=== PATIENT | male | born 1960 | race Caucasian/White ===

== ENCOUNTER 2018-05-27 21:35 | Inpatient (IN) | payer BC, OTHER ==
[~2018-05-27] VITALS: Ht 185.4 cm; Wt 83.9 kg
[2018-05-28 01:53] VITALS: BP 138/88
[2018-05-28] MEDS ORDERED: 5 DAY TAPER VALIUM-SERENITY PROTOCOL PO PRN (02:00)
[2018-05-28] MEDS ORDERED: LOPERAMIDE HCL 2 MG CAPSULE PO PRN ×2 (02:00)
[2018-05-28] MEDS ORDERED: MAGNESIUM HYDROXIDE 30 ML LIQUID UDC PO PRN (02:00)
[2018-05-28] MEDS ORDERED: MAG HYDROX/AL HYDROX/SIMETH 30 ML LIQUID UDC PO PRN (02:00)
[2018-05-28] MEDS ORDERED: ONDANSETRON 4 MG/2 ML VIAL IM PRN (02:00)
[2018-05-28] MEDS ORDERED: CLONIDINE HCL 0.1 MG TABLET PO PRN (02:00)
[2018-05-28] MEDS ORDERED: ACETAMINOPHEN 325 MG TABLET PO PRN (02:00)
[2018-05-28] MEDS ORDERED: MIRALAX 17 GM POWD.PACK PO PRN (02:00)
[2018-05-28] MEDS ORDERED: DIAZEPAM 10 MG TABLET PO PRN ×2 (02:00)
[2018-05-28] MEDS ORDERED: IBUPROFEN 400 MG TABLET PO PRN (02:00)
[2018-05-28] MEDS ORDERED: DIAZEPAM 5 MG TABLET PO PRN (02:00)
[2018-05-28] MEDS ORDERED: ONDANSETRON ODT 4 MG TAB.RAPDIS SL PRN (02:00)
[2018-05-28] MEDS ORDERED: diphenhydrAMINE 50 MG CAPSULE PO PRN (02:00)
[2018-05-28] MEDS ORDERED: THIAMINE HCL 200 MG/2 ML VIAL IM ONE (02:00)
[2018-05-28] MEDS ORDERED: DICYCLOMINE HCL 20 MG TABLET PO PRN (02:00)
[2018-05-28] MEDS ORDERED: LORAZEPAM 2 MG/1 ML VIAL IM PRN (02:00)
[2018-05-28 02:14] LABS: BASOPHILS % (AUTO) 0.6 % (0.0-2.0); EOSINOPHILS % (AUTO) 0.2 % (0.0-7.0); HEMATOCRIT 41.5 % (36.7-47.1); HEMOGLOBIN 14.4 g/dL (12.5-16.3); LYMPHOCYTES # (AUTO) 1.8 K/uL (20.0-40.0); LYMPHOCYTES % (AUTO) 35.7 % (20.5-51.5); MEAN CORPUSCULAR HEMOGLOBIN 31.4 uug (23.8-33.4); MEAN CORPUSCULAR HGB CONC 35 g/dL (32.5-36.3); MEAN CORPUSCULAR VOLUME 90.7 fL (73.0-96.2); MONOCYTES # (AUTO) 0.3 K/uL (2.0-10.0); MONOCYTES % (AUTO) 5.5 % (0.0-11.0); NEUTROPHILS # (AUTO) 2.9 K/uL (1.8-8.9); PLATELET COUNT (AUTO) 297 K/uL (152-348); RED BLOOD CELL COUNT(AUTO) 4.58 MIL/uL (4.06-5.63)
[2018-05-28 02:35] LABS: BILIRUBIN,TOTAL 0.2 mg/dL (0.2-1.0); CREATININE 1.1 mg/dL (0.6-1.3); MAGNESIUM 2.1 mg/dL (1.8-2.4); POTASSIUM 3.6 mmol/L (3.5-5.1); TOTAL PROTEIN, SERUM 8.3 g/dL (6.4-8.2)
[2018-05-28 02:57] LABS: *AMPHETAMINE, URINE NEGATIVE (NEGATIVE); *BARBITURATE, URINE NEGATIVE (NEGATIVE); *CANNABINOID, URINE NEGATIVE (NEGATIVE); *COCCAINE, URINE NEGATIVE (NEGATIVE); *OPIATE, URINE NEGATIVE (NEGATIVE); *PHENCYCLIDINE SCREEN,URINE NEGATIVE (NEGATIVE)
[2018-05-28 03:18] LABS: THYROID STIMULATING HORMONE 1.473 mIU/mL (0.358-3.740)
[2018-05-28] MEDS ORDERED: SPIR25TA6 PO (03:25)
[2018-05-28] MEDS ORDERED: IBUP-1955 PO (03:25)
[2018-05-28] MEDS ORDERED: [UNRECOGNIZED DRUG - CODE] TP (03:25)
[2018-05-28] MEDS ORDERED: LOSA25TA13 PO (03:25)
[2018-05-28] MEDS ORDERED: CARV6.252 PO (03:25)
[2018-05-28] MEDS ORDERED: AMIO200T4 PO (03:25)
[2018-05-28 04:00] VITALS: BP 140/91
[2018-05-28 08:00] VITALS: BP 117/75
[2018-05-28] MEDS: MULTIVITAMINS,THERAPEUTIC TABLET PO SCH (09:15)
[2018-05-28] MEDS: FOLIC ACID 1 MG TABLET PO SCH (09:15)
[2018-05-28] MEDS: THIAMINE HCL 100 MG TABLET PO SCH (09:15)
[2018-05-28] MEDS: DIAZEPAM 10 MG TABLET PO SCH ×4 (09:15→20:24)
[2018-05-28 12:00] VITALS: BP 141/91
[2018-05-28] MEDS: CARVEDILOL 6.25 MG TABLET PO SCH ×2 (13:04→18:26)
[2018-05-28] MEDS: LOSARTAN POTASSIUM 25 MG TABLET PO SCH (13:14)
[2018-05-28] MEDS: SPIRONOLACTONE 25 MG TABLET PO SCH (13:14)
[2018-05-28 16:00] VITALS: BP 137/96
[2018-05-28 20:00] VITALS: BP 144/90
[2018-05-29] VITALS: BP 140/96
[2018-05-29 04:00] VITALS: BP 138/89
[2018-05-29 08:04] LABS: AMYLASE 106 U/L (25-115); LIPASE 291 U/L (73-393)
[2018-05-29 08:06] LABS: HEPATITIS B SURFACE AG Negative (Negative)
[2018-05-29] MEDS: LOSARTAN POTASSIUM 25 MG TABLET PO SCH (08:22)
[2018-05-29] MEDS: THIAMINE HCL 100 MG TABLET PO SCH (08:22)
[2018-05-29] MEDS: DIAZEPAM 10 MG TABLET PO SCH ×3 (08:22→21:33)
[2018-05-29] MEDS: AMIODARONE HCL 200 MG TABLET PO SCH (08:22)
[2018-05-29] MEDS: SPIRONOLACTONE 25 MG TABLET PO SCH (08:22)
[2018-05-29] MEDS: MULTIVITAMINS,THERAPEUTIC TABLET PO SCH (08:22)
[2018-05-29] MEDS: FOLIC ACID 1 MG TABLET PO SCH (08:22)
[2018-05-29] MEDS: CARVEDILOL 6.25 MG TABLET PO SCH ×2 (08:22→18:11)
[2018-05-29 08:30] VITALS: BP 137/91
[2018-05-29] MEDS ORDERED: TUBERCULIN,PURIF.PROT.DERIV. 5 TU/0.1 ML TEST ID ONE (09:00)
[2018-05-29 12:00] VITALS: BP 142/95
[2018-05-29 16:30] VITALS: BP 124/84
[2018-05-29 20:00] VITALS: BP 129/84
[2018-05-30] VITALS: BP 143/88
[2018-05-30 04:00] VITALS: BP 132/84
[2018-05-30 08:00] VITALS: BP 123/84
[2018-05-30] MEDS: MULTIVITAMINS,THERAPEUTIC TABLET PO SCH (08:16)
[2018-05-30] MEDS: CARVEDILOL 6.25 MG TABLET PO SCH ×2 (08:16→18:00)
[2018-05-30] MEDS: DIAZEPAM 5 MG TABLET PO SCH ×4 (08:16→22:25)
[2018-05-30] MEDS: FOLIC ACID 1 MG TABLET PO SCH (08:16)
[2018-05-30] MEDS: THIAMINE HCL 100 MG TABLET PO SCH (08:16)
[2018-05-30] MEDS: SPIRONOLACTONE 25 MG TABLET PO SCH (08:17)
[2018-05-30] MEDS: AMIODARONE HCL 200 MG TABLET PO SCH (08:17)
[2018-05-30] MEDS: LOSARTAN POTASSIUM 25 MG TABLET PO SCH (08:17)
[2018-05-30 12:00] VITALS: BP 134/91
[2018-05-30 16:00] VITALS: BP 119/76
[2018-05-30 20:00] VITALS: BP 141/81
[2018-05-31] VITALS: BP 135/79
[2018-05-31 04:00] VITALS: BP 132/90
[2018-05-31 08:00] VITALS: BP 120/72
[2018-05-31] MEDS: FOLIC ACID 1 MG TABLET PO SCH (08:21)
[2018-05-31] MEDS: AMIODARONE HCL 200 MG TABLET PO SCH (08:22)
[2018-05-31] MEDS: SPIRONOLACTONE 25 MG TABLET PO SCH (08:22)
[2018-05-31] MEDS: LOSARTAN POTASSIUM 25 MG TABLET PO SCH (08:22)
[2018-05-31] MEDS: CARVEDILOL 6.25 MG TABLET PO SCH ×2 (08:22→18:12)
[2018-05-31] MEDS: THIAMINE HCL 100 MG TABLET PO SCH (08:22)
[2018-05-31] MEDS: MULTIVITAMINS,THERAPEUTIC TABLET PO SCH (08:22)
[2018-05-31] MEDS: DIAZEPAM 5 MG TABLET PO SCH ×2 (08:22→14:51)
[2018-05-31 12:00] VITALS: BP 136/91
[2018-05-31 16:00] VITALS: BP 139/96
[2018-05-31 20:25] VITALS: BP 137/82
[2018-06-01 01:00] VITALS: BP 130/83
[2018-06-01 04:03] VITALS: BP 129/84
[2018-06-01] MEDS: LOSARTAN POTASSIUM 25 MG TABLET PO SCH (08:19)
[2018-06-01] MEDS: AMIODARONE HCL 200 MG TABLET PO SCH (08:19)
[2018-06-01] MEDS: SPIRONOLACTONE 25 MG TABLET PO SCH (08:19)
[2018-06-01] MEDS: FOLIC ACID 1 MG TABLET PO SCH (08:20)
[2018-06-01] MEDS: MULTIVITAMINS,THERAPEUTIC TABLET PO SCH (08:20)
[2018-06-01] MEDS: THIAMINE HCL 100 MG TABLET PO SCH (08:20)
[2018-06-01] MEDS: CARVEDILOL 6.25 MG TABLET PO SCH (08:20)
[2018-06-01 08:23] VITALS: BP 147/94
[2018-06-01] MEDS ORDERED: DIAZEPAM 5 MG TABLET PO SCH (09:00)
== END 2018-06-01 09:10 | disposition home or self-care (01) | DRG 895 ==
LOC: SRC 05-28 00:46
PROVIDERS: ADMIT Family Medicine Addiction Medicine; ATTEND Family Medicine Addiction Medicine
PROC: HZ2ZZZZ Detoxification Services for Substance Abuse Treatment (ICD-10-PCS; principal; 2018-05-28)
PROC: HZ31ZZZ Individual Counseling for Substance Abuse Treatment, Behavioral (ICD-10-PCS; 2018-05-29)
PROC: HZ41ZZZ Group Counseling for Substance Abuse Treatment, Behavioral (ICD-10-PCS; 2018-05-30)
DX: F10.230 Alcohol dependence with withdrawal, uncomplicated (principal); Y90.9 Presence of alcohol in blood, level not specified; Z81.1 Family history of alcohol abuse and dependence; I48.91 Unspecified atrial fibrillation; I10 Essential (primary) hypertension; Z80.9 Family history of malignant neoplasm, unspecified; R74.8 Abnormal levels of other serum enzymes
CPT/HCPCS: 36415; 70030-TC; 80307; 83690; 83735; 84443; 85025; 86592; 86705; 86803; 87340; 87806; A4663; G0480

== ENCOUNTER 2018-08-01 11:13 | Inpatient (IN) | payer BC, OTHER ==
[~2018-08-01] VITALS: Ht 185.4 cm; Wt 90.7 kg
[~2018-08-01 11:13] MED LIST: AMIO200T4 PO; CARV6.252 PO; IBUP-1955 PO; LOSA25TA13 PO; SPIR25TA6 PO; [UNRECOGNIZED DRUG - CODE] TP
--- NOTE | 2018-08-01 12:15 | NUR ---
pre-assessment note: pt is severely withdrawing at this time, pt is in a wheelchair and verbalizes he can't walk he is afraid to fall. V/S WNL. pt will be placed on a 1:1 for safety. pt is the main source of information but verbalizes i don't mean to be rude or short i don't feel well. explained protocols and procedures and pt verbalized understanding.
[2018-08-01] MEDS ORDERED: ONDANSETRON ODT 4 MG TAB.RAPDIS SL PRN (13:00)
[2018-08-01] MEDS ORDERED: ACETAMINOPHEN 325 MG TABLET PO PRN (13:00)
[2018-08-01] MEDS ORDERED: ONDANSETRON 4 MG/2 ML VIAL IM PRN (13:00)
[2018-08-01] MEDS: FOLIC ACID 1 MG TABLET PO SCH (13:00)
[2018-08-01] MEDS ORDERED: LORAZEPAM 2 MG/1 ML VIAL IM PRN (13:00)
[2018-08-01] MEDS ORDERED: DIAZEPAM 10 MG TABLET PO PRN (13:00)
[2018-08-01] MEDS ORDERED: 5 DAY TAPER VALIUM-SERENITY PROTOCOL PO PRN (13:00)
[2018-08-01] MEDS ORDERED: IBUPROFEN 600 MG TABLET PO PRN (13:00)
[2018-08-01] MEDS ORDERED: MAGNESIUM HYDROXIDE 30 ML LIQUID UDC PO PRN (13:00)
[2018-08-01] MEDS ORDERED: THIAMINE HCL 200 MG/2 ML VIAL IM ONE (13:00)
[2018-08-01] MEDS ORDERED: HYDROXYZINE PAMOATE 25 MG CAPSULE PO PRN (13:00)
[2018-08-01] MEDS ORDERED: MAG HYDROX/AL HYDROX/SIMETH 30 ML LIQUID UDC PO PRN (13:00)
[2018-08-01] MEDS ORDERED: DIAZEPAM 5 MG TABLET PO PRN (13:00)
[2018-08-01] MEDS ORDERED: LOPERAMIDE HCL 2 MG CAPSULE PO PRN ×2 (13:00)
[2018-08-01] MEDS: THIAMINE HCL 100 MG TABLET PO SCH (13:00)
[2018-08-01] MEDS: DIAZEPAM 10 MG TABLET PO PRN ×2 (13:11→23:05)
[2018-08-01 13:18] LABS: *AMPHETAMINE, URINE NEGATIVE (NEGATIVE); *BARBITURATE, URINE NEGATIVE (NEGATIVE); *CANNABINOID, URINE NEGATIVE (NEGATIVE); *COCCAINE, URINE NEGATIVE (NEGATIVE); *OPIATE, URINE NEGATIVE (NEGATIVE); *PHENCYCLIDINE SCREEN,URINE NEGATIVE (NEGATIVE)
[2018-08-01] MEDS: CLONIDINE HCL 0.1 MG TABLET PO PRN (13:19)
--- NOTE | 2018-08-01 13:30 | NUR ---
Patient is a 58 year old male, appears severely tremulous, short with answers and hyperventilating while answering questions.pt appears agitated and desperate to feel better. Patient presented to [facility] for ETOH withdrawal. Patient appears disheveled, noted with dark sunken eyes noted. Patient reported to have no known allergies.pt with hx of seizure history x 1 2016. Admitting Vital signs are as follows ; BP 139/92, HR 101, respirations 18, Spo2 98% on room air, temperature 97.2, denies pain. Substance use history discussed. Patient reported that he started drinking ETOH when he was 16 years old. At this rate patient has been drinking ETOH (chardonnay) 750 ML DAILY for the past 10 days, last consumed on 07/31/18 in the afternoon. Patient had multiple attempts in achieving sobriety but remained unsuccessful. Longest period of sobriety lasted 60 days after leaving [facility] recovery in May. Patient is accompanied by a 1:1 sitter for unsteady gait, pt verbalized I can't walk I'm too shaky and sick. Patient verbalized "I came here today because i need help, i want to stay Sober and remain functioning but i know I can't do it on my own" . what triggered me to start drinking is i wasn't working at the time, im usually on a project or show and recently i have nothing im working on. Patient stated that he is unhappy and doesn't like himself when he is intoxicated. pt verbalized " when i get on my drinking pattern and cannot stop i feel like I'm going to after not drinking after trying to stop on my own. ETOH has negatively impacted my life where I can't find work and it started affecting my family life and personal performances at work. Patient verbalized "I recently relapsed because I'm not working and nothing is not keeping me occupied and busy.Patient verbalized he would like a program to help him stay sober and work at the same time. Medical history Patient reports having Anxiety and irregular heart rhythm and was fibrillated to regulate his heart rate in 2017, pt takes spironolactone, losartan, amiodarone and carvedilol. Patient verbalizes his Primary physician is Dr. Keith. Patient is compliant with medication regime and last took home medications this morning prior to being admitted . No psychiatric conditions or SI/SA. D/T pt's level of withdrawal symtoms at the time of severe tremors, seizure hx , hyperventilating and tachycardia Dr. Parker ordered to administer 20 mg of valium at this time. Addendum: 08/01/18 at 1652 by NELIDA SAINI RN after pt was medicated pt was able to re-call last treatment program: [facility] in [place] and it was an outpatient program
[2018-08-01 15:11] LABS: BASOPHILS % (AUTO) 0.6 % (0.0-2.0); HEMATOCRIT 37.8 % (36.7-47.1); LYMPHOCYTES # (AUTO) 0.6 K/uL (20.0-40.0); LYMPHOCYTES % (AUTO) 12.5 % (20.5-51.5); MEAN CORPUSCULAR HEMOGLOBIN 31.6 uug (23.8-33.4); MEAN CORPUSCULAR HGB CONC 34 g/dL (32.5-36.3); MEAN CORPUSCULAR VOLUME 91.9 fL (73.0-96.2); MONOCYTES # (AUTO) 0.4 K/uL (2.0-10.0); MONOCYTES % (AUTO) 7.6 % (0.0-11.0); NEUTROPHILS # (AUTO) 3.9 K/uL (1.8-8.9); NEUTROPHILS % (AUTO) 79.3 % (38.5-71.5); PLATELET COUNT (AUTO) 247 K/uL (152-348); RED BLOOD CELL COUNT(AUTO) 4.12 MIL/uL (4.06-5.63)
[2018-08-01 15:24] LABS: BILIRUBIN,TOTAL 0.5 mg/dL (0.2-1.0); CREATININE 1.2 mg/dL (0.6-1.3); MAGNESIUM 1.6 mg/dL (1.8-2.4); POTASSIUM 3.6 mmol/L (3.5-5.1); TOTAL PROTEIN, SERUM 8.2 g/dL (6.4-8.2)
[2018-08-01 15:34] LABS: THYROID STIMULATING HORMONE 1.429 mIU/mL (0.358-3.740)
[2018-08-01] MEDS: DIAZEPAM 10 MG TABLET PO SCH ×2 (16:41→20:47)
[2018-08-01] MEDS: CARVEDILOL 6.25 MG TABLET PO SCH (16:42)
[2018-08-01] MEDS ORDERED: NAPH15DR8 OP (17:33)
[2018-08-01 17:40] VITALS: BP 124/73
--- NOTE | 2018-08-01 19:04 | NUR ---
PRN administration: pt is noted with severe tremors and increased anxiety, PRN valium 10 mg was administered.will re-assess effectiveness of medication
--- NOTE | 2018-08-01 19:06 | NUR ---
end of shift note: pt is admitted today for etoh withdrawal/dependence. pt is last noted with a ciwa of 22, pt is noted with severe tremors, headache and increased anxiety, pt has history of ETOH induced withdrawal seizures. PRN valium of 10 mg was administered at change of shift and has started valium taper as ordered.security shift manager nurse to re-assess effectiveness of medication. pt remains on 1:1 for unsteady gait.
--- NOTE | 2018-08-01 19:30 | NUR ---
Start of Shift Patient Received. Per endorsement, Patient was admitted for ETOH Withdrawal and placed on a modified 5 Valium. Patient received PRN Valium 20mg, scheduled dose of Valium 10mg, and once again PRN Valium 10mg for increased signs and symptoms of withdrawal. Last noted CIWA 22. Labs resulted with Magnesium noted 1.6 and to be supplemented with one time dose of Mag Ox 400mg at 2100. Patient is noted to be tremulous, anxious, with worried affect. Patient avoids eye contact and is noted to easily fall asleep during conversation. 1:1 remains at bedside. All needs attended to promptly. Will continue plan of care as ordered.
--- NOTE | 2018-08-01 20:00 | NUR ---
PRN Medication Reassessment Patient received PRN Valium 10 for elevated CIWA. Patient is noted in bed sleeping, breathing even and non labored. No restlessness or discomfort noted. 1:1 remains at bedside. PRN [id number] noted to be effective. Will continue to monitor.
[2018-08-01 20:45] VITALS: BP 107/65
[2018-08-01] MEDS ORDERED: MAGNESIUM OXIDE 400 MG TABLET PO ONE (21:00)
[2018-08-01 23:03] VITALS: BP 131/79
--- NOTE | 2018-08-01 23:08 | NUR ---
PRN Medication Administration Patient is noted awake and is noted to be tremulous, anxious, easily irritable, verbalizing increased chills and sweats, restless, with light sensitivity. CIWA noted to be 24. PRN Valium 20mg administered. 1:1 remains at bedside. Will continue to monitor.
[2018-08-02] VITALS: BP 128/79
--- NOTE | 2018-08-02 00:10 | NUR ---
PRN Medication Reassessment Patient is noted in bed awake, noted with gross tremors, increased chills and sweats, anxious, restless, agitation, verbalizing increased light sensitivity. CIWA remains at 24. Relayed to CN and MD with onetime order for Ativan 2mg. Will continue to monitor. Addendum: 08/02/18 at 0021 by SAMUEL ZALDIVAR LVN PRN Medication Reassessment/PRN Medication Administration
[2018-08-02] MEDS ORDERED: LORAZEPAM 1 MG TABLET PO ONE (00:15)
--- NOTE | 2018-08-02 01:15 | NUR ---
PRN Medication Reassessment patient is noted in bed with eyes closed. Breathing even and non labored. No signs of restlessness or discomfort noted. Patient received one time dose of Ativan 2mg with medication noted to be effective. Will continue to monitor.
[2018-08-02 04:15] VITALS: BP 121/78
--- NOTE | 2018-08-02 04:15 | NUR ---
CIWA Assessment Patient is noted in bed with eyes closed. Breathing even and non labored. Vitals Rendered. CIWA not able to complete assessment as per order. No restlessness or discomfort noted. Will continue to monitor.
--- NOTE | 2018-08-02 07:15 | NUR ---
Start Of Shift Patient is a 58 yr old male who was admitted to [facility] on 08/01/18 for a medically supervised withdrawal from ETOH ( white wine), he has been placed on a 5 day Valium taper and today is day 2. PRN Medications given on PM shift : Valium 20 mg PO and Ativan 2mg PO x1 time order. He has a sitter at bedside for safety and unsteady gait. His last CIWA was 24 before PRN Ativan at 0000, he slept for 6+ hours, Currently he is in bed asleep, breathing even and unlabored, sitter at bedside. Continue to follow MD plan of care and offer support and encouragement.
--- NOTE | 2018-08-02 07:17 | NUR ---
End of Shift Patient is in bed with eyes closed. Breathing even and non labored. Patient continues on a modified Valium taper. He is noted with increased tremors, increased chills and sweats, anxiety, irritability, restlessness, light sensitivity, and intermittent sleep. Patient is noted with flat, worried affect. Patient received PRN Valium 20mg and one time dose of Ativan 2mg with medication noted to minimize signs and symptoms. Fluids encouraged as tolerated. Last noted CIWA 24. Patient is noted to sleep a total of 7 hours. 1:1 remains at bedside. All needs attended to promptly. Will continue plan of care as ordered.
[2018-08-02 08:00] VITALS: BP 133/88
--- NOTE | 2018-08-02 08:50 | NUR ---
ALLIEDE 22 Patient presets with extreme bilateral hand tremors, full body shakes, thirst, sensitivity to light and sound, decreased appetite and restlessness Scheduled Valium 5mg PO given , will give PRN Valium to follow
[2018-08-02] MEDS: DIAZEPAM 5 MG TABLET PO SCH ×4 (08:52→20:57)
[2018-08-02] MEDS: THIAMINE HCL 100 MG TABLET PO SCH (08:53)
[2018-08-02] MEDS: FOLIC ACID 1 MG TABLET PO SCH (08:53)
[2018-08-02] MEDS: AMIODARONE HCL 200 MG TABLET PO SCH (08:53)
[2018-08-02] MEDS: CARVEDILOL 6.25 MG TABLET PO SCH ×2 (08:53→16:47)
[2018-08-02] MEDS: MULTIVITAMINS,THERAPEUTIC TABLET PO SCH (08:53)
[2018-08-02] MEDS: LOSARTAN POTASSIUM 25 MG TABLET PO SCH (08:54)
[2018-08-02] MEDS: SPIRONOLACTONE 25 MG TABLET PO SCH (08:54)
[2018-08-02] MEDS ORDERED: TUBERCULIN,PURIF.PROT.DERIV. 5 TU/0.1 ML TEST ID ONE (09:00)
--- NOTE | 2018-08-02 09:51 | NUR ---
Therapist prompted client to attend group therapy sessions.
[2018-08-02 10:07] LABS: HEPATITIS B SURFACE AG Negative (Negative)
[2018-08-02] MEDS: DIAZEPAM 10 MG TABLET PO PRN (10:07)
--- NOTE | 2018-08-02 10:07 | NUR ---
CIWA 22/ PRN Valium Valium 20mg PO PRN given for CIWA 22 per protocol Patient has gross bilateral hand tremors, full body shivering, teary eyes and decreased appetite. he is anxious and has a worried facial expression.
--- NOTE | 2018-08-02 11:07 | NUR ---
PRN Valium Reassess Patient is fast asleep in bed, snoring loudly, Valium 20mg PO effective Sitter at bedside.
[2018-08-02 12:00] VITALS: BP 104/67
--- NOTE | 2018-08-02 12:30 | NUR ---
PRN Imodium Imodium 4mg PO given for reports of small bouts of diarrhea x 2 will reassess
--- NOTE | 2018-08-02 12:30 | NUR ---
CIWA 18 Patient has gross bilateral hand tremors, full body shivering, teary eyes, diarrhea and decreased appetite. he is anxious and has a worried facial expression. Imodium 4mg PO PRN given for diarrhea Scheduled 5mg PO Valium given
--- NOTE | 2018-08-02 12:40 | NUR ---
Therapist prompted client to attend group therapy.
--- NOTE | 2018-08-02 13:30 | NUR ---
PRN Reassess Patient has not had any more episodes of diarrhea, Imodium effective
[2018-08-02 16:00] VITALS: BP 136/81
--- NOTE | 2018-08-02 16:00 | NUR ---
CIWA 18 Patient has gross bilateral hand tremors, full body shivering, teary eyes and decreased appetite. he is anxious and has a worried facial expression. Imodium 4mg PO PRN given for diarrhea @ 1230 with positive results Scheduled 5mg PO Valium to be given @ 1700
--- NOTE | 2018-08-02 16:45 | NUR ---
PRN Imodium Imodium 2mg PO given after x2 diarrhea after initial 4mg PO Imodium @ 1230
--- NOTE | 2018-08-02 17:45 | NUR ---
PRN Reassess No more episodes of diarrhea, Imodium was effective
--- NOTE | 2018-08-02 18:52 | NUR ---
End of Shift Patient is a 58 yr old male who was admitted to [facility] on 08/01/18 for a medically supervised withdrawal from ETOH ( white wine), he has been placed on a 5 day Valium taper and today is day 2. PRN Medications given on this shift: Valium 20mg PO, Imodium 4mg PO and Imodium 2mg PO. He presents with gross bilateral hand tremors, diarrhea, chills, diaphoresis, decreased appetite, difficulty thinking clearly and sensitivity to light and sound. He had a fluid intake of 1500 ML, 5 Voids and 4 BM, his last CIWA was 18 @ 1600. He has stayed in bed all day and has a sitter at bedside for safety and unsteady gait. He displays a sad worried affect and avoids eye contact. Continue to follow MD plan of care and offer support and encouragement. Endorsed to maintenance technician 2nd shift.
--- NOTE | 2018-08-02 19:30 | NUR ---
START OF SHIFT Received patient awake, alert, and oriented x4. Per endorsement, patient was admitted 08/01/2018 for ETOH withdrawal (white wine). He has a past medical history of seizure in 2017 and atrial fibrillation. He is on a 5 day Valium taper and was given PRN Valium 20 mg at 1000 and Imodium 4 mg and another Imodium 2 mg. Last CIWA score was 18 at 1600. Upon assessment, patient was avoidant of eye contact and conversation. He denies any S/S of distress or pain at this time. He stated his last BM was some time in the afternoon. Will continue to monitor.
--- NOTE | 2018-08-02 20:00 | NUR ---
CIWA ASSESSMENT Patient presented with anxiety, agitation, tremors, increased sweats and chills, light sensitivity, and restlessness. CIWA noted to be 16 @ 2000. Due medications administered. Will continue to monitor.
[2018-08-02 20:16] VITALS: BP_SYST 134; BP_SYST 96; BP_DIAS 58; BP_DIAS 74
--- NOTE | 2018-08-03 00:20 | NUR ---
CIWA ASSESSMENT Patient noted sitting up in bed watching television. Denied pain and denied any need for medications at this time. Patient noted with agitation, restlessness, and minor tremors. Will continue to monitor.
[2018-08-03 00:41] VITALS: BP 113/64
--- NOTE | 2018-08-03 04:19 | NUR ---
VITALS AND CIWA DEFERRED Patient noted to be lying in bed with eyes closed and breathing even and unlabored. Vital signs refused and CIWA assessment deferred. Will continue to monitor.
--- NOTE | 2018-08-03 07:14 | NUR ---
END OF SHIFT Patient is noted to be in bed with eyes closed and respirations even and unlabored. He was admitted for ETOH withdrawal and has a past medical history of seizures and atrial fibrillation. He is continuing his 5 day Valium taper without complications. No c/o pain, distress, or episodes of loose bowel reported or PRN medications given during this shift. Last CIWA score was 11 at 0020. Patient was noted to be anxious, flat affect, and avoidant of eye contact and conversation throughout the shift. Endorsed to AM shift nurse.
[2018-08-03 07:28] LABS: BILIRUBIN,TOTAL 0.7 mg/dL (0.2-1.0); CREATININE 1.5 mg/dL (0.6-1.3); MAGNESIUM 1.6 mg/dL (1.8-2.4); POTASSIUM 3.1 mmol/L (3.5-5.1); TOTAL PROTEIN, SERUM 7.6 g/dL (6.4-8.2)
--- NOTE | 2018-08-03 07:30 | NUR ---
Start of Shift Manager Of Construction received report on 58 year old male admitted to [facility] on 08/01/18 for medical management of ETOH withdrawals. Pt endorses PMH of seizures, A-Fib and PPH of anxiety. Pt endorses NKA, full code and regular diet. Pt currently on a 5 day Valium taper with last CIWA 11, per NOC report. No PRN medications were administered on NOC, per report. Manager Of Construction encounters pt in pts room with pt resting with eyes closed. Even and unlabored respirations noted. Bed in low position with wheels locked and side rails up x2. Will continue to monitor, support and encourage according to plan of care.
[2018-08-03 08:30] VITALS: BP 114/79
--- NOTE | 2018-08-03 08:30 | NUR ---
CIWA 14 Pt is diaphoretic, tremulous, anxious, restless and has nausea and chills. Will continue to monitor, support and encourage according to plan of care
[2018-08-03] MEDS: AMIODARONE HCL 200 MG TABLET PO SCH (09:22)
[2018-08-03] MEDS: SPIRONOLACTONE 25 MG TABLET PO SCH (09:22)
[2018-08-03] MEDS: CARVEDILOL 6.25 MG TABLET PO SCH ×2 (09:23→16:07)
[2018-08-03] MEDS: FOLIC ACID 1 MG TABLET PO SCH (09:23)
[2018-08-03] MEDS: LOSARTAN POTASSIUM 25 MG TABLET PO SCH (09:23)
[2018-08-03] MEDS: DIAZEPAM 5 MG TABLET PO SCH ×3 (09:23→20:44)
[2018-08-03] MEDS: MULTIVITAMINS,THERAPEUTIC TABLET PO SCH (09:23)
[2018-08-03] MEDS: THIAMINE HCL 100 MG TABLET PO SCH (09:23)
[2018-08-03 12:18] VITALS: BP 98/62
--- NOTE | 2018-08-03 12:20 | NUR ---
CIWA 12 Pt is tremulous, anxious, restless and diaphoretic. Pt with complaints of heahache and nausea. Pt complains of having numb feet and not being able to walk. Pt endorse this process as normal for his detoxification. Pt endorses the feeling in the feet returns. Pt has ambulated to the restroom with stand by assistance. Will continue to monitor, support and encourage according to plan of care.
--- NOTE | 2018-08-03 12:37 | NUR ---
Endorsement of Care Waste Machine Offbearer endorsed care of pt to MACEY Monroe. No further comments, questions or concerns voiced.
--- NOTE | 2018-08-03 12:38 | NUR ---
ENDORSEMENT Pt endorsed to me by nurse. All information received.
--- NOTE | 2018-08-03 12:40 | NUR ---
LABS Mg=1.6 K+=3.1. MD aware and awaiting orders.
[2018-08-03] MEDS ORDERED: POTASSIUM CHLORIDE 20 MEQ TAB.PRT.SR PO ONE (13:15)
[2018-08-03] MEDS ORDERED: MAGNESIUM OXIDE 400 MG TABLET PO ONE (13:15)
[2018-08-03 16:00] VITALS: BP 114/74
--- NOTE | 2018-08-03 16:00 | NUR ---
CIWA ASSESSMENT ciwa=10. Anxious and restless. Fidgety. Irritable. Pressured speech. Bilateral hand tremors noted. Complaints of generalize discomfort.
--- NOTE | 2018-08-03 18:35 | NUR ---
END OF SHIFT Pt 58 y/o male admitted for etoh withdrawal. Pt alert and oriented to name, place, and time. Perrla. Skin warm and moist to touch. Respirations even and unlabored. Appears disheveled. Clothes and scattered throughout the room. Encouraged to maintain hygiene. Anxious and restless. Pressured speech. Bilateral hand tremors noted. Complaints of generalized discomfort. Isolative to room with no peer interaction. Pt did not attend group activity. Medication compliant. Pt is on a 5 day valium taper and is on day 3. Last ciwa=10 @1600. Sitter 1:1 with pt to monitor for safety. Bed on lowest position with side rails x2 up for safety. Call light within reach.
--- NOTE | 2018-08-03 19:15 | NUR ---
Start of Shift Received 58 year old male patient admitted 08/01/18 to [facility] for medically supervised withdrawal from ETOH. Pt Currently on day 3 of a 5 day Valium Taper, which he is tolerating well. Pt was not given any PRN medications on day shift. Last CIWA 10 @1600. Pt in dark room, isolative, and withdrawn. Pt is anxious, agitated, depressed, and guarded. Pt BP on recheck is 90/56, which pt denies any adverse effects. Pt continues on a 1:1 for safety. Will continue to monitor.
[2018-08-03 20:00] VITALS: BP 90/56
--- NOTE | 2018-08-03 20:00 | NUR ---
CIWA 10 Pt is anxious, agitated, withdrawn, isolative, and depressed.
--- NOTE | 2018-08-04 | NUR ---
CIWA deferred/ Vitals refused Pt resting with eyes closed. Respirations are even and unlabored. CIWA deferred and pt trefused vitals. Continue to monitor.
--- NOTE | 2018-08-04 04:05 | NUR ---
CIWA deferred/ Vitals refused Pt resting with eyes closed. Respirations are even and unlabored. CIWA deferred and pt refused vitals. Continue to monitor.
--- NOTE | 2018-08-04 06:46 | NUR ---
End of Shift Endorsing 58 year old male patient admitted 08/01/18 to [facility] for medically supervised withdrawal from ETOH. Pt Currently on day 4 of a 5 day Valium Taper, which he is tolerating well. Pt was not given any PRN medications on cable supervisor. Last CIWA 10 @1999. Pt resting in bed with eyes closed. Respirations are even and unlabored. Bed low, side rails up x 2, and call lopez in reach. Pt continues on a 1:1 for safety. PO intake 840 ml, voided x 2, BM x 2, and slept 5 hours.
[2018-08-04 07:42] LABS: BILIRUBIN,TOTAL 0.5 mg/dL (0.2-1.0); CREATININE 1.2 mg/dL (0.6-1.3); MAGNESIUM 1.7 mg/dL (1.8-2.4); POTASSIUM 3.7 mmol/L (3.5-5.1); TOTAL PROTEIN, SERUM 7.3 g/dL (6.4-8.2)
--- NOTE | 2018-08-04 07:42 | NUR ---
Start of shift note; Received report from night nurse. Patient is a 58 year old male admitted on 08/01/18 for ETOH withdrawals. Patient was placed on a 5 day Valium taper. Patient's last CIWA score is 10 per endorsement. Patient slept for 5 hours. Patient is currently on 1:1 for safety due to unsteady gait. Labs to be drawn in AM. All safety measures secured. Will continue to monitor patient.
[2018-08-04 08:00] VITALS: BP 117/62
[2018-08-04] MEDS: LOSARTAN POTASSIUM 25 MG TABLET PO SCH (08:25)
[2018-08-04] MEDS: AMIODARONE HCL 200 MG TABLET PO SCH (08:25)
[2018-08-04] MEDS: SPIRONOLACTONE 25 MG TABLET PO SCH (08:25)
[2018-08-04] MEDS: CARVEDILOL 6.25 MG TABLET PO SCH ×2 (08:26→16:41)
[2018-08-04] MEDS: MULTIVITAMINS,THERAPEUTIC TABLET PO SCH (08:26)
[2018-08-04] MEDS: FOLIC ACID 1 MG TABLET PO SCH (08:26)
[2018-08-04] MEDS: DIAZEPAM 5 MG TABLET PO SCH ×2 (08:26→20:52)
[2018-08-04] MEDS: THIAMINE HCL 100 MG TABLET PO SCH (08:26)
--- NOTE | 2018-08-04 08:26 | NUR ---
CIWA and Magnesium supplement; Patient's current CIWA is 11 manifested by anxiety, agitation, tremors noted, complaining of tingling sensation on bilateral legs, stomach cramps and chills. Patient remains on 1:1 supervision for safety due to unsteady gait. Patient's magnesium is low 1.7, supplemented with Magnesium Oxide 400 mg PO one time. Will continue to monitor patient.
[2018-08-04] MEDS ORDERED: MAGNESIUM OXIDE 400 MG TABLET PO ONE (09:00)
[2018-08-04 12:00] VITALS: BP 108/62
--- NOTE | 2018-08-04 12:00 | NUR ---
CIWA Assessment; Patient's current CIWA continues to be 11 manifested by anxiety, agitation, tremors noted, complaining of tingling sensation on bilateral legs, stomach cramps and chills. Patient remains on 1:1 supervision for safety.
--- NOTE | 2018-08-04 14:43 | NUR ---
Physical therapy evaluation; Patient was seen and evaluated by Chelsea. Patient was able to ambulate around the hallway using a walker and with assistance. Patient will continue to remain on 1:1 supervision for safety. Will continue to monitor patient.
[2018-08-04 16:00] VITALS: BP 116/78
--- NOTE | 2018-08-04 16:10 | NUR ---
CIWA Assessment; Patient's current CIWA is 10 manifested by anxiety, agitation, tremors noted, complaining of tingling sensation on bilateral legs, stomach cramps and chills. Patient remains on 1:1 supervision for safety.
--- NOTE | 2018-08-04 18:22 | NUR ---
End of shift note; Patient is AOX4, presented with anxiety, agitation, tremors noted, complaining of tingling sensation on bilateral legs, stomach cramps and chills. Patient remains on 1:1 supervision for safety due to unsteady gait. Patient's last CIWA score is 10 at 1600. Medications were effective in reducing withdrawal symptoms. Patient's magnesium is low 1.7, supplemented with Magnesium Oxide 400 mg PO one time. Patient was seen and evaluated by physical therapist, patient was able to ambulate with assistance and using a walker. All safety measures secured. Met all needs .
--- NOTE | 2018-08-04 19:15 | NUR ---
Start of Shift Received 58 year old male patient admitted 08/01/18 to [facility] for medically supervised withdrawal from ETOH. Pt Currently on day 4 of a 5 day Valium Taper, which he is tolerating well. Pt was not given any PRN medications on day shift. Last CIWA 11 @1600. Pt in dark room, isolative, and withdrawn. Pt is anxious, agitated, depressed, and guarded. Pt continues on a 1:1 for safety. Bed low, side rails up x 2, and call lopez in reach. Improved lab values noted and orders to repeat in am 08/05/18. Will continue to monitor.
[2018-08-04 20:00] VITALS: BP 103/60
--- NOTE | 2018-08-04 20:00 | NUR ---
CIWA 10 Pt is anxious, agitated, withdrawn, isolative, and depressed.
--- NOTE | 2018-08-05 00:04 | NUR ---
CIWA deferred/ Vitals refused Pt resting with eyes closed. Respirations are even and unlabored. CIWA deferred and pt refused vitals. Continue to monitor.
--- NOTE | 2018-08-05 04:00 | NUR ---
CIWA deferred/ Vitals refused Pt resting with eyes closed. Respirations are even and unlabored. CIWA deferred and pt refused vitals. Continue to monitor.
--- NOTE | 2018-08-05 06:37 | NUR ---
End of Shift Endorsing 58 year old male patient admitted 08/01/18 to [facility] for medically supervised withdrawal from ETOH. Pt Currently on day 5 of a 5 day Valium Taper, which he is tolerating well. Pt was not given any PRN medications on night stocker. Last CIWA 10 @1999. Pt continues on a 1:1 for safety. Pt resting with eyes closed. Respirations are even and unlabored. Bed low, side rails up x 2, and call lopez in reach. PO intake 591 ml, voided x 3, BM x 0, and slept x 6 hours. CMP, Amylase, Lipase, and Magnesium ordered for this am 08/05/18.
[2018-08-05 06:48] LABS: BILIRUBIN,TOTAL 0.4 mg/dL (0.2-1.0); CREATININE 1.2 mg/dL (0.6-1.3); MAGNESIUM 1.8 mg/dL (1.8-2.4); POTASSIUM 3.8 mmol/L (3.5-5.1); TOTAL PROTEIN, SERUM 7.3 g/dL (6.4-8.2)
--- NOTE | 2018-08-05 07:30 | NUR ---
START OF SHIFT Endorse rcvd from ongoing nurse, client is in room, he is a/o x 4, he presents with agitated mood, flat affect, tremors, and clammy skin. Client reports chills/colds, fatigue, and said, "I don't want to talk anymore, I'm very tired, I was not able to sleep at all last night." 1:1 sitter at bedside for unsteady gait, walker at bedside. Last CIWA 10 @ 1999. Client slept 6 hrs. Side rails x 2 up/padded. Seizure precautions. Call light within reach. Will continue to monitor.
[2018-08-05 08:57] VITALS: BP 120/60
--- NOTE | 2018-08-05 08:58 | NUR ---
[facility] 10 Client is in room. he is a/o x 4, he presents with anxious mood, flat affect, fine tremors, clammy skin, avoidant gaze, and difficulty concentrating. Client reports cold/ chills, feverish at times, tremors, sweats and anxiety. Scgedule Valium 5mg PO administered.
[2018-08-05] MEDS: THIAMINE HCL 100 MG TABLET PO SCH (08:59)
[2018-08-05] MEDS: AMIODARONE HCL 200 MG TABLET PO SCH (08:59)
[2018-08-05] MEDS: MULTIVITAMINS,THERAPEUTIC TABLET PO SCH (08:59)
[2018-08-05] MEDS: CARVEDILOL 6.25 MG TABLET PO SCH ×2 (08:59→17:01)
[2018-08-05] MEDS: LOSARTAN POTASSIUM 25 MG TABLET PO SCH (08:59)
[2018-08-05] MEDS: FOLIC ACID 1 MG TABLET PO SCH (08:59)
[2018-08-05] MEDS: SPIRONOLACTONE 25 MG TABLET PO SCH (09:00)
[2018-08-05] MEDS ORDERED: DIAZEPAM 5 MG TABLET PO SCH (09:00)
[2018-08-05 12:00] VITALS: BP 117/62
--- NOTE | 2018-08-05 12:20 | NUR ---
CIWA 7 Client reports abdominal cramps, agitation, anhedonia, anxiety, chills/colds, depression, tremors felt, and fatigue. Non-pharmacological measures rendered. Call light within reach.
[2018-08-05 16:34] VITALS: BP 106/62
--- NOTE | 2018-08-05 16:55 | NUR ---
CIWA 6 Client reports anxiety, agitation, tremors, clammy skin, and fatigue. Non-pharmacological measures. Call light within reach.
--- NOTE | 2018-08-05 16:55 | NUR ---
DELILAH 13 / 1 & PRN Afrin Nasal 0.05% NS 1 spray to each nostril for rhinitis. Client presents with anxious mood, flat affect, flushed facial skin, enlarged pupils, clammy skin, runny nose, and difficulty concentrating. Call light within reach. Addendum: 08/05/18 at 1807 by RAUL BARILLAS RN wrong client
--- NOTE | 2018-08-05 19:15 | NUR ---
Start of Shift Received 58 year old male patient admitted 08/01/18 to [facility] for medically supervised withdrawal from ETOH. Pt completed a 5 day Valium Taper today 08/05/18, which he tolerated well. Pt was not given any PRN medications on day shift. Last CIWA 6 @1600. Pt in dark room, isolative, and withdrawn. Pt is anxious, agitated, depressed, and guarded. Pt continues on a 1:1 for safety. Bed low, side rails up x 2, and call lopez in reach. Planned discharge in am 08/06/18. Will continue to monitor.
--- NOTE | 2018-08-05 19:25 | NUR ---
END OF SHIFT Endorse client to incoming nurse, client is in room, a/o x 4, client continues to present with anxiety, agitation, tremors, clammy skin, and fatigue. Client continues to be on 1:1 sitter for unsteady gait. Last CIWA 6 @ 1650. Client is on last of 5 day Valuim taper. Client require encouragement to attend group therapy. Consumes 25-50% of meals. Adequate PO fluid intake 1500mL, void x 4, stool x 1. Side rails x 2 up/padded. Seizure precautions. Call light within reach.
[2018-08-05 20:00] VITALS: BP 111/57
--- NOTE | 2018-08-05 20:00 | NUR ---
CIWA 5 Pt is anxious, agitated, withdrawn, isolative, and depressed.
--- NOTE | 2018-08-06 | NUR ---
CIWA deferred/ Vitals refused Pt resting with eyes closed. Respirations are even and unlabored. CIWA deferred and pt refused vitals. Continue to monitor.
--- NOTE | 2018-08-06 04:04 | NUR ---
CIWA deferred/ Vitals refused Pt resting with eyes closed. Respirations are even and unlabored. CIWA deferred and pt refused vitals. Continue to monitor.
--- NOTE | 2018-08-06 06:49 | NUR ---
End of Shift Endorsing 58 year old male patient admitted 08/01/18 to [facility] for medically supervised withdrawal from ETOH. Pt was not given any PRN medications on day shift. Last CIWA 5 @1999. Pt continues on a 1:1 for safety. PO intake 1449 ml, voided x 2, BM x 1, and slept 1 hour. Bed low, side rails up x 2, and call lopez in reach. Planned discharge home today 08/06/18.
--- NOTE | 2018-08-06 07:25 | NUR ---
Start Of Shift patient is a 58yr old male admitted to [facility] on 08/01/18 for a medically supervised withdrawal from ETOH, he has completed a 5 day Valium taper and will be discharged to home today. No PRN medications were required or requested on PM shift, he slept for 1 hr only and last CIWA was 5. Continue to follow MD plan for discharge.
--- NOTE | 2018-08-06 08:10 | NUR ---
CIWA 8 patient presents with bilateral hand tremors, increased anxiety and irritability
[2018-08-06 08:15] VITALS: BP 137/92
[2018-08-06] MEDS: MULTIVITAMINS,THERAPEUTIC TABLET PO SCH (08:28)
[2018-08-06] MEDS: FOLIC ACID 1 MG TABLET PO SCH (08:28)
[2018-08-06] MEDS: THIAMINE HCL 100 MG TABLET PO SCH (08:28)
[2018-08-06] MEDS: SPIRONOLACTONE 25 MG TABLET PO SCH (08:28)
[2018-08-06] MEDS: LOSARTAN POTASSIUM 25 MG TABLET PO SCH (08:29)
[2018-08-06] MEDS: AMIODARONE HCL 200 MG TABLET PO SCH (08:29)
[2018-08-06] MEDS: CARVEDILOL 6.25 MG TABLET PO SCH (08:37)
[2018-08-06 09:12] VITALS: BP 137/92
[2018-08-06] MEDS: CLONIDINE HCL 0.1 MG TABLET PO PRN (09:12)
--- NOTE | 2018-08-06 09:48 | NUR ---
Discharge Note patient signed and dated all DC paperwork, VS stable, Voices no SI/HI All personal belongings returned to patient Patient was picked up by Son at hospital entrance
== END 2018-08-06 09:48 | disposition home or self-care (01) | DRG 895 ==
LOC: SRC 12:17
PROVIDERS: ADMIT Family Medicine Addiction Medicine; ATTEND Family Medicine Addiction Medicine
PROC: HZ2ZZZZ Detoxification Services for Substance Abuse Treatment (ICD-10-PCS; principal; 2018-08-01)
PROC: HZ31ZZZ Individual Counseling for Substance Abuse Treatment, Behavioral (ICD-10-PCS; 2018-08-02)
DX: F10.230 Alcohol dependence with withdrawal, uncomplicated (principal); K85.90 Acute pancreatitis without necrosis or infection, unspecified; G40.509 Epileptic seizures related to external causes, not intractable, without status epilepticus; Y90.4 Blood alcohol level of 80-99 mg/100 ml; Z80.9 Family history of malignant neoplasm, unspecified; I48.91 Unspecified atrial fibrillation; I10 Essential (primary) hypertension; Z79.899 Other long term (current) drug therapy; E87.6 Hypokalemia; E83.42 Hypomagnesemia; R74.0 Nonspecific elevation of levels of transaminase and lactic acid dehydrogenase [LDH]
CPT/HCPCS: 36415; 80307; 83690; 83735; 84443; 85025; 86592; 86705; 86803; 87340; 87806; A4663; G0480